=== PATIENT | female | born 1990 | race African-American/Black ===

== ENCOUNTER 2016-08-16 16:43 | Emergency (ER) | payer OTHER ==
[~2016-08-16] VITALS: Ht 172.7 cm; Wt 144.8 kg
[~2016-08-16 16:43] MED LIST: Ceftin PO; Feosol PO; Micronor,Nor-Q-D,Err PO; Motrin PO; PEN-VEE K,VEET500 MG PO; PREFERA-OB P1 TABLET PO; TRAMADOL HCL50 MG PO; Vicodin,Norco 5/325 PO
[2016-08-16] MEDS ORDERED: ULTRAM50 MG PO (17:55)
[2016-08-16] MEDS ORDERED: MOTRIN600 MG PO (17:55)
[2016-08-16] MEDS ORDERED: AMOXICILLIN875 MG PO (17:55)
[2016-08-16 18:09] VITALS: BP 163/104
== END 2016-08-16 18:09 | disposition home or self-care (01) ==
LOC: EME 16:43 → EXP 16:43
DX: K08.89 Other specified disorders of teeth and supporting structures (principal); I10 Essential (primary) hypertension; K02.9 Dental caries, unspecified; H61.22 Impacted cerumen, left ear
CPT/HCPCS: 99281; 99283